=== PATIENT | female | born 1955 | race Caucasian/White ===

== ENCOUNTER 2017-03-06 14:10 | Emergency (ER) | payer OTHER ==
[2017-03-06 14:14] VITALS: TEMP 98.2; BMI 23.0
--- NOTE | 2017-03-06 15:24 | PDOC ---
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 She states that this has been going on since yesterday and she associates it her her starting alendronate. She denies nausea, vomiting, fevers chills, chest pain and shortness of breath. She denies decreased PO intake, dysuria, diarrhea and constipation. She denies any specific symptom, saying she just feels weak. Past History - Past Medical History Allergies/Adverse Reactions: Allergies Allergy/AdvReac Type Severity Reaction Status Date / Time Penicillins Allergy Intermediate Verified 03/06/17 14:14 Home Medications: Ambulatory Orders Hydrochlorothiazide [Hctz -] 25 mg PO DAILY #30 tablet 09/03/15 Anemia: No Asthma: No Cancer: No Cardiac Disorders: No CVA: No COPD: No CHF: No Dementia: No Diabetes: No GI Disorders: No Disorders: No HTN: Yes Hypercholesterolemia: No Liver Disease: No Seizures: No Thyroid Disease: No - Surgical History Abdominal Surgery: No Appendectomy: No Cardiac Surgery: No Cholecystectomy: No Lung Surgery: No Neurologic Surgery: No Orthopedic Surgery: Yes (LASER SX ON EYES) - Immunization History Immunization Up to Date: Yes - Psycho/Social/Smoking Cessation Hx Anxiety: No Suicidal Ideation: No Smoking History: Never smoked Have you smoked in the past 12 months: No Hx Alcohol Use: No Drug/Substance Use Hx: No Substance Use Type: None Hx Substance Use Treatment: No Review of Systems - Review of Systems Comments:: 03/06/17 15:29 GENERAL/CONSTITUTIONAL: No fever or chills. Positive for weakness. HEAD, EYES, EARS, NOSE AND THROAT: No change in vision. No ear pain or discharge. No sore throat. CARDIOVASCULAR: No chest pain or shortness of breath RESPIRATORY: No cough, wheezing, or hemoptysis. GASTROINTESTINAL: No nausea, vomiting, diarrhea or constipation. GENITOURINARY: No dysuria, frequency, or change in urination. MUSCULOSKELETAL: No joint or muscle swelling or pain. No neck or back pain. SKIN: No rash NEUROLOGIC: No headache, loss of consciousness, or change in strength/sensation. ALLERGIC/IMMUNOLOGIC: No hives or skin allergy. *Physical Exam - Vital Signs Last Vital Signs Temp Pulse Resp BP Pulse Ox 98.2 F 84 18 122/78 98 03/06/17 14:12 03/06/17 14:12 03/06/17 14:12 03/06/17 14:12 03/06/17 14:12 - Physical Exam Comments: 03/06/17 15:30 GENERAL: Awake, alert, and fully oriented, in no acute distress HEAD: No signs of trauma, normocephalic, atraumatic EYES: PERRLA, EOMI, sclera anicteric, conjunctiva clear ENT: Auricles normal inspection, hearing grossly normal, nares patent, oropharynx clear without exudates. Moist mucosa LUNGS: No distress, speaks full sentences, clear to auscultation bilaterally HEART: Regular rate and rhythm, normal S1 and S2, no murmurs, rubs or gallops, peripheral pulses normal and equal bilaterally. ABDOMEN: Soft, nontender, normoactive bowel sounds. No guarding, no rebound. No masses EXTREMITIES: Normal inspection, Normal range of motion, no edema. No clubbing or cyanosis. NEUROLOGICAL: Cranial nerves II through XII grossly intact. Normal speech, normal gait, no focal sensorimotor deficits, no ataxia SKIN: Warm, Dry, normal turgor, no rashes or lesions noted. Heart Score/ECG Review - History History: Slightly suspicious - Electrocardiogram EKG: Normal - Age Age: 45-65 - Risk Factors Risk Factors Heart Score: Yes Hx Hypertension Based on the list above the patient has:: 1-2 risk factors - Troponin Troponin: </= normal limit - Score Heart Score - Total: 2 - ECG Intrepretation Comment:: 03/06/17 15:45 Normal sinus rhythm, normal rate, normal axis, no ST elevations, no T wave abnormalities, incomplete RBBB pattern, normal QRS interval ED Treatment Course - LABORATORY CBC & Chemistry Diagram: 03/06/17 15:41 03/06/17 15:41 - RADIOLOGY Radiology Studies Ordered: Category Date Time Status CHEST PA & LAT [RAD] Stat Radiology 03/06/17 15:19 Ordered Medical Decision Making - Medical Decision Making 03/06/17 15:31 Patient a 62F with no significant medical history here today complaining of weakness. Vital signs stable and normal. Differential diagnosis includes, but is not limited to: ACS, heart failure, UTI, pneumonia. Will order CBC, CMP, CXR , UA, EKG and Trop. 03/06/17 15:50 CXR reviewed, shows patent airway, normal lung oshea, and normal cardiac silhouette. No evidence of acute cardiopulmonary process. 03/06/17 17:32 Trop negative, CBC, CMP normal. UA shows 6 WBCs with rare epithelial and bacteria with 1+ LE. Urine culture sent. Antibiotics likely not needed. Discharged with outpatient follow up. Low risk HEART score. *DC/Admit/Observation/Transfer Diagnosis at time of Disposition: Weakness - Discharge Dispostion Disposition: HOME Condition at time of disposition: Good Admit: No - Patient Instructions Printed Discharge Instructions: DI for Muscle Weakness Additional Instructions: Please set up an appointment with your PCP. Please come back to the ED if your symptoms worsen. Print Language: SYRIAC - Attestations Physician Attestion: 03/06/17 17:32 I, Dr. David Mueller, attest that this document has been prepared under my direction and personally reviewed by me in its entirety. I further attest, that it accurately reflects all work, treatment, procedures and medical decision -making performed by me.
--- NOTE | 2017-03-06 15:40 | PDOC ---
Attending Attestation - Resident Resident Name: [email or web address] - ED Attending Attestation I have performed the following: I have examined & evaluated the patient, The case was reviewed & discussed with the resident, I agree w/resident's findings & plan, Exceptions are as noted - HPI HPI: 03/08/17 08:37 62 yo F presenting to the ER due to light headedness No chest pain No palpitations No recent illness No focal weakness or numbness No vertigo Symptoms not particularly worse with standing or changing head position This previously happened when her sodium was low - Physicial Exam PE: 03/08/17 08:38 Pt is well appearing RRR CTA B/L No abd tenderness Motor strength 5/5 all extremities Sensation in tact No ataxia CN II-XII grossly intact - Medical Decision Making A/P: 03/06/17 16:48 Laboratory Tests 03/06/17 03/06/17 15:41 15:41 Sodium 137 Potassium 4.9 D Chloride 102 Carbon Dioxide 29 Anion Gap 6 L BUN 20 H D Creatinine 0.9 Random Glucose 91 Creatine Kinase 95 Troponin I < 0.02 Urine Blood 2+ H Urine Nitrite Negative Ur Leukocyte Esterase 1+ H Urine RBC 1 Urine WBC 6 Pt states she feels well Accompanied by daughter Will discharge to home UA likely negative Will be sure to send Urine culture Follow up with PMD Heart Score/ECG Review #1 ECG reviewed & interpreted by me at: 16:12 03/06/17 16:13 Twelve-lead EKG was performed and reviewed by me. There is normal sinus rhythm with a normal rate of 67 bpm. The axis is normal. The intervals are normal - pr: 132ms, QRS:98ms, QTc:450ms. Incomplete RBBB. There are no ST or T wave abnormalities.
[2017-03-06 16:13] LABS: URINE APPEARANCE CLEAR; URINE BILIRUBIN NEGATIVE (NEGATIVE); URINE BLOOD 2+ (NEGATIVE); URINE COLOR LTYELLOW; URINE GLUCOSE (UA) NEGATIVE (NEGATIVE); URINE KETONE NEGATIVE (NEGATIVE); URINE NITRITE NEGATIVE (NEGATIVE); URINE PROTEIN NEGATIVE (NEGATIVE); URINE UROBILINOGEN NEGATIVE mg/dL (0.2-1.0)
[2017-03-06 16:15] LABS: ALBUMIN 3.7 g/dl (3.4-5.0); ANION GAP 6 (8-16); BILIRUBIN,TOTAL 0.4 mg/dL (0.2-1.0); CALCIUM 8.9 mg/dL (8.5-10.1); CO2 29 mmol/L (21-32); CREATININE 0.9 mg/dL (0.55-1.02); GLUCOSE,RANDOM 91 mg/dL (74-106); MAGNESIUM 2.4 mg/dL (1.8-2.4); SGOT/AST 22 U/L (15-37); SGPT/ALT 33 U/L (12-78); TOT PROT 7.7 g/dl (6.4-8.2)
[2017-03-06 16:18] LABS: ALK PHOS 94 U/L (45-117); CPK 95 IU/L (26-192); TROPONIN I < 0.02 ng/ml (0.00-0.05)
--- NOTE | 2017-03-06 16:20 | EKG ---
Test Reason : Blood Pressure : / mmHG Vent. Rate : 067 BPM Atrial Rate : 067 BPM P-R Int : 132 ms QRS Dur : 098 ms QT Int : 426 ms P-R-T Axes : 062 053 027 degrees QTc Int : 450 ms NORMAL SINUS RHYTHM INCOMPLETE RIGHT BUNDLE BRANCH BLOCK BORDERLINE ECG WHEN COMPARED WITH ECG OF 02-SEP-2015 22:18, NO SIGNIFICANT CHANGE WAS FOUND Confirmed by CONNER RAYMOND MD ([id number]) on 03/06/2017 4:20:15 PM Referred By: Confirmed By:CONNER RAYMOND MD
[2017-03-06 16:22] LABS: BASOPHIL 0.5 % (0-2.0); EOSINOPHIL 3.5 % (0-4.5); MCHC 33.4 g/dl (32.0-36.0); MEAN CELL VOLUME 86.8 fl (80-96); NEUTROPHILS 67.6 % (42.8-82.8); PLATELET COUNT 351 K/MM3 (134-434); RDW 13.8 % (11.6-15.6); WHITE BLOOD COUNT 8.4 K/mm3 (4.0-10.0)
[2017-03-06 16:24] LABS: URINE LEUK ESTERASE 1+ (NEGATIVE)
[2017-03-06 16:27] LABS: URINE BACTERIA RARE /hpf (NONE SEEN); URINE RBC 1 /hpf (0-3); URINE WBC 6 /hpf (3-5)
[2017-03-06 16:46] LABS: INR 1.06 (0.82-1.09); PROTHROMBIN TIME (PATIENT) 11.7 SEC (9.98-11.88)
[2017-03-06 17:24] VITALS: BP 138/80; PULSE 63
== END 2017-03-06 17:36 | disposition home or self-care (01) ==
LOC: JER 14:10
DX: R53.1 Weakness (principal); I10 Essential (primary) hypertension
CPT/HCPCS: 36415; 71020-TC; 80053; 81003; 81015; 83735; 84484; 85025; 85610; 87086; 93005; 93010; 99283-25

== ENCOUNTER 2017-03-31 17:56 | Emergency (ER) | payer OTHER ==
[2017-03-31 18:08] VITALS: BMI 22.8
[2017-03-31] MEDS ORDERED: ALPRAZolam 0.25 MG TABLET PO ONE (19:11)
--- NOTE | 2017-03-31 19:12 | PDOC ---
History of Present Illness <DavidAnne Cheryl - Last Filed: 03/31/17 19:13> - General History Source: Patient Exam Limitations: No Limitations - History of Present Illness Initial Comments: 03/31/17 19:30 The patient is a 62 year old female presenting with her daughter, with a significant past medical history of HTN, anxiety and depression, who presents to the emergency department with insomina, anxiety and pins/needles sensation at the bottom of her feet for the last 3 days. She reports that she saw her PMD on 03/28/2017 for these symptoms and was prescribed Doxepin medication which she did not pickle pumper because she assumed it was for her blood pressure but was informed in the ED that its for her insomnia and anxiety. The patient was seen in the ED on 03/06/2017 for lightheadedness and her workup was unremarkable. The patient has an appointment tomorrow for her feet neuropathy. She denies any homicidal and suicidal ideation. The patient denies chest pain, shortness of breath, headache and dizziness. Denies fever, chills, nausea, vomit, diarrhea and constipation. Denies dysuria, frequency, urgency and hematuria. Allergies: Penicillin Past surgical history: Laser surgery on eyes bilaterally Social history: No alcohol, tobacco or drug use reported <Lars Montenegro - Last Filed: 03/31/17 19:31> - General Chief Complaint: Lightheaded Stated Complaint: PAIN, ACUTE Time Seen by Provider: 03/31/17 18:14 Past History - Past Medical History Anemia: No Asthma: No Cancer: No Cardiac Disorders: No CVA: No COPD: No CHF: No Dementia: No Diabetes: No GI Disorders: No Disorders: No HTN: Yes Hypercholesterolemia: No Liver Disease: No Psychiatric Problems: Yes (DEPRESSION/ ANXIETY) Seizures: No Thyroid Disease: No - Surgical History Abdominal Surgery: No Appendectomy: No Cardiac Surgery: No Cholecystectomy: No Lung Surgery: No Neurologic Surgery: No Orthopedic Surgery: Yes (LASER SX ON EYES) - Immunization History Immunization Up to Date: Yes - Psycho/Social/Smoking Cessation Hx Anxiety: No Suicidal Ideation: No Smoking History: Never smoked Have you smoked in the past 12 months: No Hx Alcohol Use: No Drug/Substance Use Hx: No Substance Use Type: None Hx Substance Use Treatment: No <Anne Hernandez - Last Filed: 03/31/17 19:13> <Lars Montenegro - Last Filed: 03/31/17 19:31> - Past Medical History Allergies/Adverse Reactions: Allergies Allergy/AdvReac Type Severity Reaction Status Date / Time Penicillins Allergy Intermediate Verified 03/31/17 18:08 Home Medications: Ambulatory Orders Hydrochlorothiazide [Hctz -] 25 mg PO DAILY #30 tablet 09/03/15 Review of Systems - Review of Systems Able to Perform ROS?: Yes Comments:: 03/31/17 19:30 GENERAL/CONSTITUTIONAL: No fever or chills. No weakness. HEAD, EYES, EARS, NOSE AND THROAT: No change in vision. No ear pain or discharge. No sore throat.- CARDIOVASCULAR: No chest pain or shortness of breath RESPIRATORY: No cough, wheezing, or hemoptysis. GASTROINTESTINAL: No nausea, vomiting, diarrhea or constipation. GENITOURINARY: No dysuria, frequency, or change in urination. MUSCULOSKELETAL: No joint or muscle swelling or pain. No neck or back pain. SKIN: No rash NEUROLOGIC: No headache, vertigo, loss of consciousness, or change in strength/ sensation. ENDOCRINE: No increased thirst. No abnormal weight change HEMATOLOGIC/LYMPHATIC: No anemia, easy bleeding, or history of blood clots. ALLERGIC/IMMUNOLOGIC: No hives or skin allergy. <Lars Montenegro - Last Filed: 03/31/17 19:31> *Physical Exam - Vital Signs Last Vital Signs Temp Pulse Resp BP Pulse Ox 99.1 F 103 H 20 152/91 96 03/31/17 18:04 03/31/17 18:04 03/31/17 18:04 03/31/17 18:04 03/31/17 18:04 <Anne Hernandez - Last Filed: 03/31/17 19:13> - Vital Signs Last Vital Signs Temp Pulse Resp BP Pulse Ox 99 F 82 17 149/89 98 03/31/17 19:27 03/31/17 19:27 03/31/17 19:27 03/31/17 19:27 03/31/17 19:27 - Physical Exam Comments: 03/31/17 19:30 GENERAL: Awake, alert, and fully oriented, in no acute distress HEAD: No signs of trauma, normocephalic, atraumatic EYES: PERRLA, EOMI, sclera anicteric, conjunctiva clear ENT: Auricles normal inspection, hearing grossly normal, nares patent, oropharynx clear without exudates. Moist mucosa NECK: Normal ROM, supple, no lymphadenopathy, JVD, or masses LUNGS: No distress, speaks full sentences, clear to auscultation bilaterally HEART: Regular rate and rhythm, normal S1 and S2, no murmurs, rubs or gallops, peripheral pulses normal and equal bilaterally. ABDOMEN: Soft, nontender, normoactive bowel sounds. No guarding, no rebound. No masses EXTREMITIES : Normal inspection, Normal range of motion, no edema. No clubbing or cyanosis. NEUROLOGICAL: Cranial nerves II through XII grossly intact. Normal speech, normal gait, no focal sensorimotor deficits SKIN: Warm, Dry, normal turgor, no rashes or lesions noted. <Lars Montenegro - Last Filed: 03/31/17 19:31> ED Treatment Course - Medications Given in the ED: ED Medications Discontinued Medications Generic Name Dose Route Start Last Admin Trade Name Freq PRN Reason Stop Dose Admin Alprazolam 0.25 mg 03/31/17 19:11 03/31/17 19:16 Xanax - PO 03/31/17 19:12 0.25 mg ONCE ONE Administration <Lars Montenegro - Last Filed: 03/31/17 19:31> *DC/Admit/Observation/Transfer <Anne Hernandez - Last Filed: 03/31/17 19:13> - Attestations Scribe Attestion: 03/31/17 19:31 Documentation prepared by Lars Montenegro, acting as medical imaging director for Anne Hernandez MD <Lars Montenegro - Last Filed: 03/31/17 19:31> Diagnosis at time of Disposition: Anxiety Insomnia Qualifiers: Insomnia type: unspecified Qualified Code(s): G47.00 - Insomnia, unspecified - Discharge Dispostion Disposition: HOME Condition at time of disposition: Stable - Patient Instructions Printed Discharge Instructions: DI for Insomnia, DI for Anxiety -- Adult, DI for Numbness/tingling Additional Instructions: Please keep your Appointment this Saturday with your doctor. Please pickle pumper your medications at your pharmacy Print Language: SWEDISH
[2017-03-31] MEDS ORDERED: ALPRAZolam 0.25 MG TABLET ONE (19:14)
[2017-03-31 19:28] VITALS: BP 149/89; PULSE 82; TEMP 99
== END 2017-03-31 19:29 | disposition home or self-care (01) ==
LOC: JER 17:56
DX: F41.8 Other specified anxiety disorders (principal)
CPT/HCPCS: 99282-25

== ENCOUNTER → 2022-05-09 | Day surgery (SDC) | payer OTHER | END | disposition home or self-care (01) | LOC: JMAMMO-SUR 10:35 | PROVIDERS: ATTEND Family Medicine | PROC: 0H9U3ZX Drainage of Left Breast, Percutaneous Approach, Diagnostic (ICD-10-PCS; principal; 2022-05-09) | DX: N63.20 Unspecified lump in the left breast, unspecified quadrant (principal); D24.2 Benign neoplasm of left breast | CPT/HCPCS: 19083; 77065-TC; 87899; A4648 ==